=== PATIENT | female | born 1970 | race Caucasian/White ===

== ENCOUNTER 2016-08-18 08:12 | Emergency (ER) | payer MEDICARE, OTHER ==
[~2016-08-18] VITALS: Ht 170.2 cm; Wt 80.0 kg
[2016-08-18 08:20] VITALS: Ht 170.2 cm; Wt 80.0 kg
--- NOTE | 2016-08-18 10:31 | ERA ---
ER Documentation Chief Complaint Date/Time DATE: 08/18/16 TIME: 10:29 Chief Complaint unresponsive was doing heroine this am HPI 45-year-old woman brought in by EMS for unresponsiveness secondary to heroin abuse. She has a long history of heroin abuse and overdose. And did not require naloxone because she was arousable. She denies suicidal homicidal ideation, no fevers or chills, no vomiting or diarrhea. Patient was transported here by EMS without complications. ROS All systems reviewed and are negative except as per history of present illness. Medications Home Meds Unable to Obtain Active Prescriptions or Reported Meds PMhx/Soc Medical and Surgical Hx: Unable to obtain Hx Alcohol Use: Yes Hx Substance Use: Yes (heroine od 08/18/16) Hx Tobacco Use: Yes Smoking Status: Current every day smoker FmHx Family History: No diabetes Physical Exam Vitals Vital Signs Date Time Temp Pulse Resp B/P Pulse Ox O2 Delivery O2 Flow Rate FiO2 08/18/16 10:55 77 18 129/69 99 Room Air 08/18/16 08:20 97.9 93 12 117/82 95 Physical Exam GENERAL: Well-developed, well-nourished, lethargic HEENT: Moist mucous membranes, pink conjunctiva, no cervical spine tenderness or step-off deformities, no goiter, no jaundice or icterus, extraocular movements intact without pain. No submandibular induration, and no pharyngeal erythema NEURO: Lethargic but able to answer questions and follow commands, cranial nerves II through XII intact bilaterally, pupils equal round reactive to light, no focal deficits or facial asymmetry, sensation intact distally Strength 5/5 in upper and lower extremities bilaterally CARDIAC: Tachycardic and regular, no murmurs rubs or gallops LUNGS: Clear bilaterally no wheezing crackles or stridor ABDOMEN: Soft nontender, no guarding, no rigidity, no rebound, no psoas sign no obturator sign. Normoactive bowel sounds SKIN: Warm and dry to touch, no abrasions, contusions, or hematomas, no lacerations, no ecchymosis, no target lesions, and without ulcers EXTREMITIES: No clubbing cyanosis or edema, calves are bilaterally symmetrical, no Homans sign, no popliteal cord sign. Distal pulses equal and bilateral PSYCH: Normal affect without agitation or irritability Procedures/MDM Patient was placed on ekg monitor tech rhythm strip revealed a sinus tachycardia at 110 bpm with upright P and T waves. Patient was afebrile. EKG performed, read by me revealed a sinus tachycardia at 108 bpm, normal axis, narrow QRS complex, no concerning ST elevations or depressions noted. Patient was ambulatory here in the emergency department and without complaints although I did provide her a social work consultation in both verbal and written recommendations were provided to her. Differential diagnoses considered, included but not limited to acute coronary syndrome, pulmonary embolism, aortic dissection, abdominal aortic aneurysm, sepsis, stroke, meningitis, encephalitis, pneumonia, appendicitis, cholecystitis , bowel obstruction, pyelonephritis, nephrolithiasis, cystitis, as well as metabolic, hematologic, and electrolyte abnormalities. As well as abscess, cellulitis, fractures, and dislocations. Patient feels much better at this time, and vital signs are normal, symptoms have improved. I did give strict instructions to return to the ED if symptoms continue or worsen, patient will otherwise follow-up with primary care physician. Patient understood instructions and agreed to plan. Departure Diagnosis: Primary Impression: Heroin abuse Condition: Good Patient Instructions: Understanding Heroin Abuse and Addiction, Treating Heroin Addiction RAFFAELE BAÑUELOS MD August 18, 2016 10:31
[2016-08-18 10:55] VITALS: BP 129/69; PULSE 77; RESP 18
== END 2016-08-18 11:00 | disposition home or self-care (01) ==
LOC: E/R 08:12
DX: F11.10 Opioid abuse, uncomplicated (principal); F17.210 Nicotine dependence, cigarettes, uncomplicated; R40.2142 Coma scale, eyes open, spontaneous, at arrival to emergency department; R40.2252 Coma scale, best verbal response, oriented, at arrival to emergency department; R40.2362 Coma scale, best motor response, obeys commands, at arrival to emergency department
CPT/HCPCS: 82962; 93005